=== PATIENT | male | born 1975 | race Caucasian/White ===

== ENCOUNTER 2019-10-19 07:40 | Emergency (ER) | payer SELFPAY ==
[2019-10-19 07:44] VITALS: BP 187/134; PULSE 86; RESP 17; TEMP 36.6; O2SAT 99; BMI 23.7
--- NOTE | 2019-10-19 07:53 | ECG_ITS ---
Measurements Intervals [place] Rate: 68 P: 46 [place]: 184 QRS: 3 QRSD: 98 T: 48 QT: 417 QTc: 446 SINUS RHYTHM NONSPECIFIC T-WAVE ABNORMALITY No previous ECG available for comparison Electronically Signed On 10-19-2019 21:00:26 CDT by Mirian Cornejo M.D. [email or web address]
--- NOTE | 2019-10-19 08:06 | W.ED.NEUROSD ---
HPI - Neuro Symptoms/Deficit General: Chief Complaint: Neuro Symptoms/Deficit Stated Complaint: stroke like symptoms Time Seen by Provider: 10/19/19 07:43 History of Present Illness: HPI Narrative: Patient awoke this morning with numbness and loss of fine motor control on the right. Patient describes some difficulty speaking. Patient also states that he had no symptoms when he went to bed last night. Onset (ago): unknown Location: speech, left face, right arm, right leg and ataxia History of same: Yes Severity: moderate Quality: weak, numb and improving Relieving factors: none Exacerbating factors: none Context: sudden onset On Anticoagulants: No Treatments Prior to Arrival: none Review of Systems General: Reports: 10 or more systems reviewed and unremarkable except in HPI and below PFSH ED PFSH: Social History Smoking and tobacco status: current every day smoker Physical Exam Const: COMMON NORMALS: no acute distress, patient oriented x3, healthy appearing and well nourished GENERAL APPEARANCE: cooperative and well developed HENMT: COMMON NORMALS: normocephalic and atraumatic HEAD & SCALP: normal to inspection, normocephalic and atraumatic Eye: GENERAL EYE: appearance normal, both eyes and all related structures Neck/C-Spine: COMMON NORMALS: full ROM, no lymphadenopathy and no meningeal signs GENERAL: Yes normal visual inspection CERVICAL SPINE: Yes cervical ROM normal and Yes normal cervical lordosis Chest: COMMONS NORMALS: normal inspection of the chest and normal palpation of entire chest wall Resp: COMMON NORMALS: normal respiratory effort, clear to auscultation bilaterally and percussion normal AUSCULTATION: clear to auscultation bilaterally PERCUSSION: percussion normal Cardio: COMMON NORMALS: regular rate, regular rhythm, S1 normal heart sound present and S2 normal heart sound present JUGULAR VENOUS DISTENTION: no JVD PALPATION: normal PMI RATE: regular rate RHYTHM: regular rhythm HEART SOUNDS: S1 normal heart sound present and S2 normal heart sound present GI: COMMON NORMALS: Soft to palpation and No hepatosplenomegaly present INSPECTION: Yes normal to inspection PALPATION: Yes Soft to palpation and Yes No hepatosplenomegaly present PERCUSSION: normal to percussion : COMMON NORMALS: Yes no CVA tenderness BLADDER/KIDNEY EXAM: Yes no CVA tenderness Back/Pelvis: COMMON NORMALS: no CVA tenderness, thoracic and lumbar spine normal to inspection and thoraco-lumbar ROM normal Extremity: COMMON NORMALS: normal to inspection, full ROM and capillary refill normal Neuro: COMMON NORMALS: patient oriented x3 MENINGEAL SIGNS: Yes no meningeal signs CRANIAL NERVES: Yes CN VII (facial) Laterality: left CN VII left: facial droop, unable to puff cheeks and asymmetrical smile COORDINATION/BALANCE: No [id number]-[id number] test normal and No mdlh-gb-fnae test normal SPEECH: speech normal GAIT: Yes Unable to assess gait MOTOR EXAM: Motor abnormalites present COORDINATION: uddtbz-hg-oatl test abnormal and onlw-eb-aorh test abnormal Skin: COMMON NORMALS: no rashes or lesions noted, no wounds and turgor normal GENERAL SKIN EXAM: no rashes or lesions noted, elasticity normal and turgor normal LESIONS: no lesions RASHES: no rashes TRAUMA: no lacerations or abrasions HAIR: normal NAILS: normal Course ED course: Patient made the decision to sign out of the ER AGAINST MEDICAL ADVICE. Patient was cautioned that leaving before the end of treatment could have adverse consequences up to and including . Vital Signs: Vital signs: Vital Signs Temperature 97.9 F 10/19/19 07:44 Pulse Rate 86 10/19/19 07:44 Respiratory Rate 17 10/19/19 07:44 Blood Pressure 187/134 10/19/19 07:44 Pulse Oximetry 99 10/19/19 07:44 Discharge Plan Discharge Patient Disposition: Left Against Medical Advice Clinical Impression: Cerebrovascular accident Qualifiers: CVA mechanism: unspecified Qualified Code(s): I63.9 - Cerebral infarction, unspecified Condition: Stable Prescriptions: No Action No Known Home Medications RF: 0 Discharge Orders: Discharge Order (Routine); Ordered 10/19/19 Ordered By: Rich Painter Coding Level of Care Code ED Household Appliance Installer for Indrag Fwd Exam Comprehensive
== END 2019-10-19 08:16 | disposition left against medical advice (07) ==
LOC: ER 08:35
PROVIDERS: Emergency Provider Family Medicine
DX: I63.9 Cerebral infarction, unspecified (principal); Z53.21 Procedure and treatment not carried out due to patient leaving prior to being seen by health care provider; F17.210 Nicotine dependence, cigarettes, uncomplicated
CPT/HCPCS: 12345; 93005; 99282; 99283